=== PATIENT | female | born 2000 ===

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

== ENCOUNTER 2018-07-01 13:53 | Emergency (ER) | payer BC ==
[2018-07-01 13:55] VITALS: BMI 32.9
[2018-07-01] MEDS ORDERED: Albuterol-Ipratrop 3 mg / 0.5 (3 ml) UD IH STA (14:24)
--- NOTE | 2018-07-01 14:27 | ED PDOC ---
Arrival/HPI - General Chief Complaint: Cough, Cold, Congestion Time Seen by Provider: 07/01/18 13:57 Historian: Patient - History of Present Illness Narrative History of Present Illness (Text): 07/01/18 14:25 17 y/o female, pmh including asthma, nkda, c/o asthma exacerbation x 2 days. Pt. stated that she is out of the albuterol MDI, stated that she has been having dry coughing, associated with wheezing, no chest pain or shortness of breath, no night sweat, no rash, no numbness or tingling, no other medical or psychological complaints. Past Medical History - Provider Review Nursing Documentation Reviewed: Yes - Infectious Disease Hx of Infectious Diseases: None - Pulmonary Hx Asthma: Yes - Psychiatric Hx Substance Use: No - Anesthesia Hx Anesthesia: No Hx Anesthesia Reactions: No Hx Malignant Hyperthermia: No Family/Social History - Physician Review Nursing Documentation Reviewed: Yes Family/Social History: Unknown Family HX Smoking Status: Never Smoked Hx Alcohol Use: No Hx Substance Use: No Allergies/Home Meds Allergies/Adverse Reactions: Allergies No Known Allergies Allergy (Verified 07/01/18 14:07) Review of Systems - Review of Systems Constitutional: absent: Fatigue, Fevers Eyes: absent: Vision Changes ENT: absent: Hearing Changes Respiratory: Cough, Wheezing. absent: SOB, Sputum Cardiovascular: absent: Chest Pain Gastrointestinal: absent: Abdominal Pain, Nausea, Vomiting Skin: absent: Rash, Pruritis Neurological: absent: Headache, Dizziness Psychiatric: absent: Anxiety, Depression, Suicidal Ideation Physical Exam Vital Signs Reviewed: Yes Vital Signs Temp Pulse Resp BP Pulse Ox 07/01/18 14:02 97.9 F 79 19 133/82 96 Temperature: Afebrile Blood Pressure: Normal Pulse: Regular Respiratory Rate: Normal Appearance: Positive for: Well-Appearing, Non-Toxic, Comfortable Pain Distress: None Mental Status: Positive for: Alert and Oriented X 3 - Systems Exam Head: Present: Atraumatic, Normocephalic Pupils: Present: PERRL Extroacular Muscles: Present: EOMI Conjunctiva: Present: Normal Mouth: Present: Moist Mucous Membranes Neck: Present: Normal Range of Motion Respiratory/Chest: Present: Wheezes (bilateral generalized). No: Respiratory Distress, Accessory Muscle Use, Rales, Retracting, Rhonchi, Tachypneic, Tender to Palpation Cardiovascular: Present: Regular Rate and Rhythm, Normal S1, S2. No: Murmurs Abdomen: No: Tenderness, Distention, Peritoneal Signs Back: Present: Normal Inspection Upper Extremity: Present: Normal Inspection. No: Cyanosis, Edema Lower Extremity: Present: Normal Inspection. No: Edema Neurological: Present: GCS=15, CN II-XII Intact, Speech Normal Skin: Present: Warm, Dry, Normal Color. No: Rashes Psychiatric: Present: Alert, Oriented x 3, Normal Insight, Normal Concentration Medical Decision Making ED Course and Treatment: 07/01/18 14:27 - -Chest xray -duoneb -Observe and reassess 07/01/18 15:16 -Urine hcg is negative. -Chest xray show no active disease -Wheezing resolved, bilateral clear to auscultate now with no wheezing/crackles/ rhonchis/rales. -Pt. feeling much better, request to be discharged home, Discharge home with albuterol MDI, prednisone, zithromax, stay hydrated, follow up with your own pmd and commercial lending relationship manager within 2 days, return to the ER for any new or worsening signs or symptoms. - RAD Interpretation Radiology Orders: 07/01/18 14:24 CHEST PORTABLE [RAD] Stat Date of service: 07/01/2018 HISTORY: medical clearance COMPARISON: No prior. FINDINGS: LUNGS: No active pulmonary disease. PLEURA: No significant pleural effusion identified, no pneumothorax apparent. CARDIOVASCULAR: Normal. OSSEOUS STRUCTURES: No significant abnormalities. VISUALIZED UPPER ABDOMEN: Normal. OTHER FINDINGS: None. IMPRESSION: No active disease. Lab Asst: Radiologist - Medication Orders Current Medication Orders: Discontinued Medications Albuterol/Ipratropium (Duoneb 3 Mg/0.5 Mg (3 Ml) Ud) 3 ml IH STAT STA Stop: 07/01/18 14:25 Last Admin: 07/01/18 15:39 Dose: 3 ml Prednisone (Prednisone Tab) 60 mg PO STAT ONE Stop: 07/01/18 16:14 Disposition/Present on Arrival - Present on Arrival Any Indicators Present on Arrival: No History of DVT/PE: No History of Uncontrolled Diabetes: No Urinary Catheter: No History of Decub. Ulcer: No History Surgical Site Infection Following: None - Disposition Have Diagnosis and Disposition been Completed?: Yes Diagnosis: Asthma exacerbation attacks, URI (upper respiratory infection) Disposition: HOME/ ROUTINE Disposition Time: 16:08 Patient Plan: Discharge Patient Problems: Current Active Problems Problem Status Onset Asthma exacerbation attacks Acute URI (upper respiratory infection) Acute Condition: IMPROVED Additional Instructions: Discharge home with albuterol MDI, prednisone, zithromax, stay hydrated, follow up with your own pmd and commercial lending relationship manager within 2 days, return to the ER for any new or worsening signs or symptoms. Prescriptions: Albuterol HFA [Ventolin HFA 90 mcg/actuation (8 g)] 2 puff IH [id number] #1 in Azithromycin [Zithromax] 250 mg PO DAILY #6 tab Prednisone 50 mg PO DAILY #4 tab Referrals: [facility] at [facility] [place] [Outside] - Follow up with primary Renita Mckinney MD [Staff Provider] - Follow up with primary Forms: [facility] ([place]), WORK NOTE
--- NOTE | 2018-07-01 16:13 | RAD ---
Date of service: 07/01/2018 HISTORY: medical clearance COMPARISON: No prior. FINDINGS: LUNGS: No active pulmonary disease. PLEURA: No significant pleural effusion identified, no pneumothorax apparent. CARDIOVASCULAR: Normal. OSSEOUS STRUCTURES: No significant abnormalities. VISUALIZED UPPER ABDOMEN: Normal. OTHER FINDINGS: None. IMPRESSION: No active disease.
[2018-07-01 17:49] VITALS: BP 123/74; PULSE 70; RESP 18; TEMP 98.2; O2SAT 99
== END 2018-07-01 17:00 | disposition home or self-care (01) ==
LOC: ED 13:53
DX: J45.901 Unspecified asthma with (acute) exacerbation (principal); J06.9 Acute upper respiratory infection, unspecified